=== PATIENT | female | born 1970 | race Caucasian/White ===

== ENCOUNTER → 2020-04-15 | Outpatient (CLI) | payer OTHER ==
--- NOTE | 2020-04-15 14:58 | XR ---
EXAMINATION TYPE: XR chest 2V DATE OF EXAM: 04/15/2020 COMPARISON: NONE HISTORY: Chest pain TECHNIQUE: Frontal and lateral views of the chest are obtained. FINDINGS: There is no focal air space opacity. No evidence for pneumothorax. No pleural effusion. The cardiac silhouette size is within normal limits. The osseous structures are grossly intact. IMPRESSION: 1. No acute cardiopulmonary process.
== END | disposition home or self-care (01) ==
LOC: LABWHC1 14:31
PROVIDERS: ATTEND Internal Medicine
DX: R07.9 Chest pain, unspecified (principal)
CPT/HCPCS: 36415; 71046; 93005

== ENCOUNTER → 2020-04-19 | Outpatient (CLI) | payer OTHER ==
[2020-04-19 09:00] LABS: HCT 42.4 % (34.0-46.0); HGB 14.1 gm/dL (11.4-16.0); MCH 31.3 pg (25.0-35.0); MCHC 33.2 g/dL (31.0-37.0); MCV 94.2 fL (80.0-100.0); Mean Platelet Volume 7.2; Platelet Count 288 k/uL (150-450); RBC 4.51 m/uL (3.80-5.40); RDW 12.5 % (11.5-15.5)
[2020-04-19 17:54] LABS: African American GFR (CKD) 99.6 (60.0-200.0); Anion Gap 3.3 mmol/L (4.00-12.00); BUN/Creat Ratio 18.75 Ratio (12.00-20.00); Calcium 8.7 mg/dL (8.7-10.3); Carbon Dioxide 27.7 mmol/L (21.6-31.8); Chol/HDL Ratio 2.72; LDL Cholesterol,Calculated 104.6 mg/dL (0.0-131.0); Potassium 4.1 mmol/L (3.5-5.5); Total Bilirubin 0.4 mg/dL (0.2-1.2); VLDL Calculation 10.4 mg/dL (5.00-40.00)
== END | disposition home or self-care (01) ==
LOC: LABWHC1 08:30
PROVIDERS: ATTEND Internal Medicine
DX: Z00.00 Encounter for general adult medical examination without abnormal findings (principal); E78.5 Hyperlipidemia, unspecified; R07.9 Chest pain, unspecified
CPT/HCPCS: 36415; 80053; 80061; 85027

== ENCOUNTER → 2021-06-09 | Outpatient (CLI) | payer OTHER ==
--- NOTE | 2021-06-09 13:16 | P.STRESS ---
- Stress Test Note Stress Test Results/Findings: Exam Performed: stress test Exam Date: 06/09/21 Reason for Exam: CHEST PAIN, ABNORMAL EKG Height: 5 ft 5 in Weight: 61.4 kg Protocol: LUCRECIA Stage: 4 Duration of Exercise: 10:30 Resting Heart Rate: 60 Resting Blood Pressure: 127/80 Maximum Achieved Heart Rate: 168 Maximum Achieved Blood Pressure: 194/95 85% PMHR: 144 100% PMHR: 169 METS: 12.1 Technologist Comment: Stress Test Results/Findings: Baseline 12-lead EKG shows sinus rhythm with 0.[address] depression inferolaterally Patient exercised on a Lucrecia protocol for Minutes, achieving a peak heart rate of 168 beats a minute. Normal blood pressure response to exercise No arrhythmias [address] depression noted at peak exercise that recovered quickly in recovery No symptoms noted Impression Excellent exercise capacity No new ECG abnormalities noted baseline EKG shows [address] depression inferolaterally
== END | disposition home or self-care (01) ==
LOC: RADNMMAIN 08:34
PROVIDERS: ATTEND Internal Medicine
DX: R07.9 Chest pain, unspecified (principal); R94.31 Abnormal electrocardiogram [ECG] [EKG]
CPT/HCPCS: 93017

== ENCOUNTER 2021-07-10 09:53 | Emergency (ER) | payer OTHER ==
[2021-07-10 10:09] VITALS: TEMP 98.1
[2021-07-10] MEDS ORDERED: SODIUM CHLORIDE 0.9% 1,000 ML IV STA (10:25)
[2021-07-10] MEDS ORDERED: KETOROLAC 15 MG/ML 1 ML VIAL IVP STA (10:25)
[2021-07-10 10:57] LABS: Basophils # (A) 0.1 k/uL (0-0.2); Basophils % (A) 1 %; Eosinophils # (A) 0.1 k/uL (0-0.7); Eosinophils % (A) 1 %; HCT 49.2 % (34.0-46.0); Lymphocytes # (A) 2.2 k/uL (1.0-4.8); Lymphocytes % (A) 27 %; MCH 31.4 pg (25.0-35.0); MCHC 34.6 g/dL (31.0-37.0); MCV 90.9 fL (80.0-100.0); Mean Platelet Volume 7.5; Monocytes # (A) 0.3 k/uL (0-1.0); Monocytes % (A) 4 %; Neutrophils # (A) 5.2 k/uL (1.3-7.7); Neutrophils % (A) 64 %; Platelet Count 344 k/uL (150-450); RBC 5.41 m/uL (3.80-5.40); RDW 12.6 % (11.5-15.5)
--- NOTE | 2021-07-10 11:02 | XR ---
EXAMINATION TYPE: XR KUB DATE OF EXAM: 07/10/2021 10:48 AM CLINICAL HISTORY: Left lower quadrant pain. TECHNIQUE: Two Upright KUB images of the abdomen are obtained. COMPARISON: None. FINDINGS: Scattered gas is seen in non-distended small bowel loops. Gas and fecal material is seen in non-distended colon. There is no visceromegaly, pneumoperitoneum, or abnormal calcification apprecia lisette. Levoconvex scoliosis centered at the mid to lower lumbar spine. IMPRESSION: Overall nonobstructive bowel gas pattern.
[2021-07-10 11:04] LABS: Appearance,Urine Cloudy (Clear); Bilirubin,Urine Negative (Negative); Blood,Urine Trace (Negative); Color,Urine Yellow; Glucose,Urine (UA) Negative (Negative); Ketones,Urine Negative (Negative); Leukocyte Esterase,Urine Trace (Negative); Mucus,Urine Occasional /hpf; Nitrite,Urine Negative (Negative); PH, Urine 5.5 (5.0-8.0); Protein,Urine Negative (Negative); RBC,Urine 6 /hpf (0-5); Specific Gravity,Urine 1.021 (1.001-1.035); Squamous Epithelial Cell,Urine 16 /hpf (0-4); Urobilinogen,Urine <2.0 mg/dL (<2.0); WBC,Urine 3 /hpf (0-5)
--- NOTE | 2021-07-10 11:10 | ED ---
Abdominal Pain HPI - General Chief Complaint: Abdominal Pain Stated Complaint: abd pain Time Seen by Provider: 07/10/21 10:13 Source: patient, RN notes reviewed Mode of arrival: ambulatory Limitations: no limitations - History of Present Illness Initial Comments: Patient is a 51-year-old female that presents to the emergency department complaining of left lower back pain with radicular symptoms on the left leg into the groin. She notes that she was seen by her chiropractor got adjusted felt better but the pain came back. She denied any injury or trauma to her back. But notes she does have a history of sciatica. She also notes that she's been h aving some urinary frequency and dysuria and was started on an antibiotic by her primary care. She also noted that she started on a muscle relaxer baclofen by her primary care for low back pain. Patient was otherwise well-appearing while laying in bed in no apparent distress or pain. She denied any abdominal tenderness change in bowel movements chest pain shortness of breath headache nausea vomiting diarrhea constipation fever fatigue chills. - Related Data Previous Rx's Medication Instructions Recorded predniSONE 50 mg PO DAILY #5 tab 07/10/21 Allergies Allergy/AdvReac Type Severity Reaction Status Date / Time No Known Allergies Allergy Verified 07/10/21 10:09 Review of Systems ROS Statement: Those systems with pertinent positive or pertinent negative responses have been documented in the HPI. ROS Other: All systems not noted in ROS Statement are negative. Past Medical History Past Medical History: No Reported History History of Any Multi-Drug Resistant Organisms: None Reported Additional Past Surgical History / Comment(s): cervix - leep Past Psychological History: No Psychological Hx Reported Smoking Status: Current every day smoker Past Alcohol Use History: Occasional Past Drug Use History: Marijuana General Exam Limitations: no limitations General appearance: alert, in no apparent distress Head exam: Present: atraumatic, normocephalic, normal inspection Eye exam: Present: normal appearance, PERRL, EOMI. Absent: scleral icterus, conjunctival injection, periorbital swelling ENT exam: Present: normal exam, mucous membranes moist Neck exam: Present: normal inspection Respiratory exam: Present: normal lung sounds bilaterally. Absent: respiratory distress, wheezes, rales, rhonchi, stridor Cardiovascular Exam: Present: regular rate, normal rhythm, normal heart sounds. Absent: systolic murmur, diastolic murmur, rubs, gallop, clicks GI/Abdominal exam: Present: soft, normal bowel sounds. Absent: distended, tenderness, guarding, rebound, rigid Extremities exam: Present: normal inspection, full ROM, normal capillary refill. Absent: tenderness, pedal edema, joint swelling, calf tenderness Back exam: Present: normal inspection, full ROM. Absent: tenderness, CVA tenderness (R), CVA tenderness (L) Neurological exam: Present: alert, oriented X3 Psychiatric exam: Present: normal affect, normal mood Skin exam: Present: warm, dry, intact, normal color. Absent: rash Course Vital Signs 07/10/21 07/10/21 10:05 11:29 Temperature 98.1 F Pulse Rate 74 68 Respiratory 16 20 Rate Blood Pressure 157/97 161/96 O2 Sat by Pulse 99 98 Oximetry Medical Decision Making - Medical Decision Making 51-year-old female complaining of left-sided lower back pain with radicular symptoms to the groin and left lower leg. Labs, KUB, 15 mg of Toradol, 1 L normal saline ordered. Labs unremarkable. KUB negative for any acute process shows an overall nonobstructive bowel gas pattern. Patient most likely a strain seeing sciatica with radicular symptoms to the groin and left leg. Case discussed with Dr. Huffman, patient can discharge home with follow-up to primary care. - Lab Data Result diagrams: 07/10/21 10:36 07/10/21 10:36 Lab Results 07/10/21 07/10/21 07/10/21 Range/Units 10:36 10:36 10:36 WBC 8.0 (3.8-10.6) k/uL RBC 5.41 H (3.80-5.40) m/uL Hgb 17.0 H (11.4-16.0) gm/dL Hct 49.2 H (34.0-46.0) % MCV 90.9 (80.0-100.0) fL MCH 31.4 (25.0-35.0) pg MCHC 34.6 (31.0-37.0) g/dL RDW 12.6 (11.5-15.5) % Plt Count 344 (150-450) k/uL MPV 7.5 Neutrophils % 64 % Lymphocytes % 27 % Monocytes % 4 % Eosinophils % 1 % Basophils % 1 % Neutrophils # 5.2 (1.3-7.7) k/uL Lymphocytes # 2.2 (1.0-4.8) k/uL Monocytes # 0.3 (0-1.0) k/uL Eosinophils # 0.1 (0-0.7) k/uL Basophils # 0.1 (0-0.2) k/uL Sodium 137 (137-145) mmol/L Potassium 4.5 (3.5-5.1) mmol/L Chloride 108 H (98-107) mmol/L Carbon Dioxide 22 (22-30) mmol/L Anion Gap 7 mmol/L BUN 14 (7-17) mg/dL Creatinine 0.81 (0.52-1.04) mg/dL Est GFR (CKD-EPI)AfAm >90 (>60 ml/min/1.73 sqM) Est GFR (CKD-EPI)NonAf 85 (>60 ml/min/1.73 sqM) Glucose 92 (74-99) mg/dL Calcium 9.5 (8.4-10.2) mg/dL Total Bilirubin 0.5 (0.2-1.3) mg/dL AST 22 (14-36) U/L ALT 14 (4-34) U/L Alkaline Phosphatase 82 (38-126) U/L Total Protein 7.0 (6.3-8.2) g/dL Albumin 4.2 (3.5-5.0) g/dL Urine Color Yellow Urine Appearance Cloudy H (Clear) Urine pH 5.5 (5.0-8.0) Ur Specific [place] 1.021 (1.001-1.035) Urine Protein Negative (Negative) Urine Glucose (UA) Negative (Negative) Urine Ketones Negative (Negative) Urine Blood Trace H (Negative) Urine Nitrite Negative (Negative) Urine Bilirubin Negative (Negative) Urine Urobilinogen <2.0 (<2.0) mg/dL Ur Leukocyte Esterase Trace H (Negative) Urine RBC 6 H (0-5) /hpf Urine WBC 3 (0-5) /hpf Ur Squamous Epith Cells 16 H (0-4) /hpf Urine Mucus Occasional H (None) /hpf - Radiology Data Radiology results: report reviewed, image reviewed KUB: Overall nonobstructive bowel gas pattern. Disposition Clinical Impression: Sciatica, Lumbar radiculopathy Disposition: HOME SELF-CARE Condition: Stable Instructions (If sedation given, give patient instructions): Sciatica (ED), Lumbar Radiculopathy (ED) Additional Instructions: Please return to the Emergency Department if symptoms worsen or any other concerns. Follow-up with primary care 1-2 days. Take prednisone as prescribed. Avoid any stress activities or exercise. Discuss possible physical therapy with primary care. Prescriptions: predniSONE 50 mg PO DAILY #5 tab Is patient prescribed a controlled substance at d/c from ED?: No Referrals: Hellen Hearn MD [Primary Care Provider] - 1-2 days Time of Disposition: 11:41
[2021-07-10 11:21] LABS: ALT 14 U/L (4-34); AST 22 U/L (14-36); African American GFR (CKD) >90 (>60 ml/min/1.73 sqM); Albumin 4.2 g/dL (3.5-5.0); Alkaline Phosphatase 82 U/L (38-126); Anion Gap 7 mmol/L; Blood Urea Nitrogen 14 mg/dL (7-17); Calcium 9.5 mg/dL (8.4-10.2); Carbon Dioxide 22 mmol/L (22-30); Chloride 108 mmol/L (98-107); Glucose 92 mg/dL (74-99); Non-African American GFR(CKD) 85 (>60 ml/min/1.73 sqM); Potassium 4.5 mmol/L (3.5-5.1); Sodium 137 mmol/L (137-145); Total Bilirubin 0.5 mg/dL (0.2-1.3)
[2021-07-10 11:31] VITALS: BP 161/96; PULSE 68; RESP 20
== END 2021-07-10 11:50 | disposition home or self-care (01) ==
LOC: EC 09:53
DX: M54.16 Radiculopathy, lumbar region (principal); M54.42 Lumbago with sciatica, left side; F17.200 Nicotine dependence, unspecified, uncomplicated; F12.90 Cannabis use, unspecified, uncomplicated
CPT/HCPCS: 36415; 80053; 85025; 81001; 74018; 99283; 96374; 96361; J1885

== ENCOUNTER → 2021-10-05 | Outpatient (CLI) | payer OTHER ==
--- NOTE | 2021-10-05 15:53 | XR ---
EXAMINATION TYPE: XR thoracic spine 3 views, XR lumbar spine 3V DATE OF EXAM: 10/05/2021 COMPARISON: NONE HISTORY: 51-year-old female R52, pain FINDINGS: Thoracic spine: Gentle S-shaped curvature of the thoracolumbar spine. There are small T12 ribs. All pedicles are visu alized. Very mild degenerative disc disease lower third thoracic spine. Vertebral body heights are pr eserved and alignment is maintained. Mild to moderate disc/endplate degenerative change C5-C7 levels with reversal of the normal cervical lordosis. Lumbar spine: Levoconvex scoliosis. Hypertrophic facet arthropathy mid to lower lumbar spine. Trace grade 1 anterol isthesis L4-L5. There is grade 1 retrolisthesis L2-L3. Vertebral body heights are preserved. Mild deg enerative disc disease throughout. IMPRESSION (thoracic and lumbar spine): 1. Mild S-shaped scoliosis of the thoracolumbar spine. 2. Hypertrophic facet arthropathy in the lumbar spine with grade 1 spondylolistheses at L2-L3 and L4- L5. 3. Mild degenerative disc disease lower third thoracic spine and throughout the lumbar spine. 4. No vertebral compression collapse.
== END | disposition home or self-care (01) ==
LOC: RADXRMAIN 13:17
PROVIDERS: ATTEND Internal Medicine
DX: M51.36 Other intervertebral disc degeneration, lumbar region (principal); M46.96 Unspecified inflammatory spondylopathy, lumbar region
CPT/HCPCS: 72070; 72100